=== PATIENT | female | born 1980 | race Caucasian/White ===

== ENCOUNTER 2019-04-20 14:35 | Emergency (ER) | payer BC, OTHER ==
[~2019-04-20] VITALS: Ht 167.6 cm; Wt 98.6 kg
[2019-04-20] MEDS ORDERED: MECLIZINE 12.5 MG TABLET. PO STA (14:59)
[2019-04-20] MEDS ORDERED: IV NORMAL SALINE 1,000ML 1,000 ML IV ONE (15:00)
--- NOTE | 2019-04-20 15:02 | PHYS DOC ---
Past History Past Medical History: No Pertinent History Past Surgical History: Cholecystectomy, Other Additional Past Surgical Histo: right knee Alcohol Use: None Drug Use: None Adult General Chief Complaint Chief Complaint: DIZZY/LIGHT HEADED [facility] HPI Patient is a 39 year-old female who presented to ER today for evaluation of dizziness. Patient woke up this morning feeling lightheaded as she stood up she feel really dizzy, felt like the room was spinning around her, has some ringing in her ears. Patient denies any headache, no weakness or numbness anywhere, no trouble speaking. Patient says she had been having some upper respiratory issues lately, flulike symptom with nasal congestion and facial pain. Patient denies any chest pain, no trouble breathing, no recent travel or operation. Patient had no previous history of stroke or high blood pressure or diabetic. HER SYMPTOMS GOT WORSE WITH UPRIGHT POSITION OR WHEN SHE MOVES HER HEAD AROUND All other ROS is negative unless otherwise noted in HPI Review of Systems Review of Systems See above Allergies Allergies Allergies Coded Allergies Type Severity Reaction Last Updated Verified No Known Drug Allergies 04/20/19 No Physical Exam Physical Exam See above Constitutional: Well developed, well nourished, no acute distress, non-toxic appearance. [] HENT: Normocephalic, atraumatic, bilateral external ears normal, oropharynx moist, no oral exudates, nose normal. [] Eyes: PERRLA, EOMI, conjunctiva normal, no discharge. [] Neck: Normal range of motion, no tenderness, supple, no stridor. [] Cardiovascular:Heart rate regular rhythm, no murmur [] Lungs & Thorax: Bilateral breath sounds clear to auscultation [] Abdomen: Bowel sounds normal, soft, no tenderness, no masses, no pulsatile masses. [] Skin: Warm, dry, no erythema, no rash. [] Back: No tenderness, no CVA tenderness. [] Extremities: No tenderness, no cyanosis, no clubbing, ROM intact, no edema. [] Neurologic: Alert and oriented X 3, normal motor function, normal sensory function, no focal deficits noted. [] Psychologic: Affect normal, judgement normal, mood normal. [] Current Patient Data Vital Signs Vital Signs Date Time Temp Pulse Resp B/P (MAP) Pulse Ox O2 Delivery O2 Flow Rate FiO2 04/20/19 14:45 97.7 92 18 98 Room Air EKG EKG EKG was done at 1506, rate of 68 beats per minute normal sinus rhythm, no STEMI. Radiology/Procedures Radiology/Procedures [][address] [address] IMAGING REPORT Signed PATIENT: PARMJIT PARKS ACCOUNT: [id number] : 1980 LOCATION: ER AGE: 39 SEX: F EXAM STATUS: REG ER ORD. PHYSICIAN: PAULINA CERON DO REASON: WOKE UP THIS MORNING WITH DIZZINESS, ROOM SPINNING PROCEDURE: CT HEAD WO CONTRAST PQRS Compliance Statement: One or more of the following individualized dose reduction techniques were utilized for this examination: 1. Automated exposure control 2. Adjustment of the mA and/or kV according to patient size 3. Use of iterative reconstruction technique CT head without contrast 04/20/2019 2:57 PM INDICATION: Dizziness with standing. COMPARISON: None available TECHNIQUE: Multiple axial CT images of the head were obtained from skull base through the vertex without intravenous contrast. FINDINGS: Head: Ventricles, sulci and basal cisterns are within normal limits. There is no hydrocephalus. Blevins-white matter differentiation is normal. There is no acute intracranial hemorrhage. There is no mass, mass effect or midline shift. Posterior fossa is normal in appearance. Visualized portions of the orbits are normal. Paranasal sinuses are well aerated. Mastoid air cells are well aerated. Scalp and calvaria are normal. IMPRESSION: No acute intracranial hemorrhage. Electronically signed by: Kentrell Kendrick MD (04/20/2019 3:30 PM) [id number] DICTATED AND SIGNED BY: KENTRELL KENDRICK MD DATE: 04/20/19 1530 CC: PCP,NO; PAULINA CERON DO ~ Course & Med Decision Making Course & Med Decision Making Pertinent Labs and Imaging studies reviewed. (See chart for details) DIFFERENTIAL DIAGNOSES: SINUSITIS, URI, CVA, BRAIN TUMOR, VERTIGO... She felt much better after meclizine and IV fluid. Patient probably had in her ear problem due to recent URI, we'll discharge her home with meclizine . she will need to follow with her family doctor for reevaluation. Dragon Disclaimer Dragon Disclaimer This electronic medical record was generated, in whole or in part, using a voice recognition dictation system. Departure Departure: Impression: Primary Impression: Vertigo Disposition: HOME, SELF-CARE Condition: STABLE Referrals: PCP,NO (PCP) FOLLOW UP WITH YOUR DOCTOR IN 2 DAYS FOR REEVALUATION. Patient Instructions: Vertigo Scripts Meclizine Hcl (MECLIZINE HCL) 25 Mg Tablet 1 TAB PO PRN TID PRN for DIZZINESS, #30 TAB Prov: PAULINA CERON DO 04/20/19 PAULINA CERON DO Apr 20, 2019 15:02
[2019-04-20] MEDS ORDERED: ONDANSETRON PF 4 MG/2 ML VIAL. IVP ONE (15:15)
[2019-04-20 15:23] LABS: BASO % 1 % (0-3); EOS # 0.1 x10^3/uL (0.0-0.7); EOS % 1 % (0-3); HEMATOCRIT 41.9 % (36.0-47.0); HEMOGLOBIN 14.3 g/dL (12.0-15.5); LYMPH # 1.7 x10^3/uL (1.0-4.8); LYMPH % 22 % (24-48); MEAN CORPUSCULAR HEMOGLOBIN 29 pg (25-35); MEAN CORPUSCULAR HGB CONC 34 g/dL (31-37); MEAN CORPUSCULAR VOLUME 85 fL (79-100); MONO # 0.3 x10^3/uL (0.0-1.1); MONO % 4 % (0-9); NEUT # 5.5 x10^3uL (1.8-7.7); NEUT % 72 % (31-73); PLATELET COUNT 229 x10^3/uL (140-400); RED BLOOD COUNT 4.94 x10^6/uL (3.50-5.40); RED CELL DISTRIBUTION WIDTH 13.5 % (11.5-14.5); WHITE BLOOD COUNT 7.6 x10^3/uL (4.0-11.0)
[2019-04-20 15:27] LABS: CALCIUM 8.8 mg/dL (8.5-10.1); CREATININE 0.6 mg/dL (0.6-1.0); GFR 111.9; POTASSIUM 3.7 mmol/L (3.5-5.1)
[2019-04-20 15:33] LABS: ALBUMIN 3.4 g/dL (3.4-5.0); TOTAL BILIRUBIN 1.1 mg/dL (0.2-1.0); TOTAL PROTEIN 6.7 g/dL (6.4-8.2)
--- NOTE | 2019-04-20 15:33 | RAD ---
PQRS Compliance Statement: One or more of the following individualized dose reduction techniques were utilized for this examination: 1. Automated exposure control 2. Adjustment of the mA and/or kV according to patient size 3. Use of iterative reconstruction technique CT head without contrast 04/20/2019 2:57 PM INDICATION: Dizziness with standing. COMPARISON: None available TECHNIQUE: Multiple axial CT images of the head were obtained from skull base through the vertex without intravenous contrast. FINDINGS: Head: Ventricles, sulci and basal cisterns are within normal limits. There is no hydrocephalus. Blevins-white matter differentiation is normal. There is no acute intracranial hemorrhage. There is no mass, mass effect or midline shift. Posterior fossa is normal in appearance. Visualized portions of the orbits are normal. Paranasal sinuses are well aerated. Mastoid air cells are well aerated. Scalp and calvaria are normal. IMPRESSION: No acute intracranial hemorrhage. Electronically signed by: Ivania Moss MD (04/20/2019 3:30 PM) [id number]
[2019-04-20 16:25] LABS: BACTERIA,URINE MOD /HPF (0-FEW); BILIRUBIN,URINE NEG (NEG); CLARITY,URINE CLOUDY; COLOR,URINE YELLOW; GLUCOSE,URINE NEG (NEG); NITRITE,URINE NEG (NEG); RBC,URINE 0 /HPF (0-2); SQUAMOUS EPITHELIAL CELL,UR MANY /LPF; UROBILINOGEN,URINE 0.2 mg/dL (0.2 mg/dL); WBC,URINE OCC /HPF (0-4)
[2019-04-20] MEDS ORDERED: MECL-75 PO (16:56)
[2019-04-20 17:05] VITALS: BP 142/72
--- NOTE | 2019-04-20 18:01 | EKG ---
[address] [address] Test Date: 2019-04-20 Test Time: 15:06:39 Pat Name: PARMJIT PARKS Department: Room: Gender: F Pillowcase Folder: : 1980 Requested By: PAULINA CERON Order Number: [id number] Reading MD: Measurements Intervals [place] Rate: 68 P: 30 [place]: 148 QRS: 0 QRSD: 84 T: 3 QT: 404 QTc: 430 Interpretive Statements SINUS RHYTHM LEFTWARD AXIS NO SPECIFIC ECG ABNORMALITIES RI6.01 No previous ECG available for comparison
== END 2019-04-20 17:07 | disposition home or self-care (01) ==
LOC: ER 14:35
DX: R42 Dizziness and giddiness (principal); R09.81 Nasal congestion; R51 Headache
CPT/HCPCS: 36415; 70450; 80053; 81001; 81025; 83735; 85025; 87086; 93005; 96361; 96374; 99285; J2405; J8597; J7030

== ENCOUNTER 2019-11-04 21:53 | Emergency (ER) | payer BC ==
[~2019-11-04] VITALS: Ht 167.6 cm; Wt 98.6 kg
[~2019-11-04 21:53] MED LIST: MECL-75 PO
[2019-11-04 22:04] VITALS: BP 145/98
[2019-11-04] MEDS ORDERED: HYDR-3165 PO (22:31)
--- NOTE | 2019-11-04 22:31 | PHYS DOC ---
Past History Past Medical History: No Pertinent History Past Surgical History: Cholecystectomy, Other Additional Past Surgical Histo: right knee Alcohol Use: None Drug Use: None General Adult EDM: Chief Complaint: KNEE INJURY HPI: HPI: 39-year-old female presents with right knee pain. This started yesterday, but has worsened today. She was hoping that sleeping last night would make it better. It did not. 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 She is on her feet all day. Her right knee is swollen and generally aching. She is tried Tylenol and ibuprofen but it does not take enough of the pain away. She has not sure if she has had a more significant injury and that is why she came in for evaluation. She cannot think of a specific inciting event or injury. It just began to hurt more more throughout the day yesterday. She has no other complaints at this time. Review of Systems: Review of Systems: Constitutional: Denies fever or chills Eyes: Denies change in visual acuity HENT: Denies nasal congestion or sore throat Respiratory: Denies cough or shortness of breath Cardiovascular: Denies chest pain or edema GI: Denies abdominal pain, nausea, vomiting, bloody stools or diarrhea : Denies dysuria Musculoskeletal: Right knee pain Integument: Denies rash Neurologic: Denies headache, focal weakness or sensory changes Endocrine: Denies polyuria or polydipsia Lymphatic: Denies swollen glands Psychiatric: Denies depression or anxiety Heart Score: Risk Factors: Risk Factors: DM, Current or recent (<one month) smoker, HTN, HLP, family history of CAD, obesity. Risk Scores: Score 0 - 3: 2.5% MACE over next 6 weeks - Discharge Home Score 4 - 6: 20.3% MACE over next 6 weeks - Admit for Clinical Observation Score 7 - 10: 72.7% MACE over next 6 weeks - Early Invasive Strategies Allergies: Allergies: Allergies Coded Allergies Type Severity Reaction Last Updated Verified No Known Drug Allergies 04/20/19 No Physical Exam: PE: Constitutional: Well developed, well nourished, no acute distress, non-toxic appearance. [] HENT: Normocephalic, atraumatic, bilateral external ears normal, oropharynx moist, no oral exudates, nose normal. [] Eyes: PERRLA, EOMI, conjunctiva normal, no discharge. [] Neck: Normal range of motion, no tenderness, supple, no stridor. [] Cardiovascular:Heart rate regular rhythm, no murmur [] Lungs & Thorax: Bilateral breath sounds clear to auscultation [] Abdomen: Bowel sounds normal, soft, no tenderness, no masses, no pulsatile masses. [] Skin: Warm, dry, no erythema, no rash. [] Back: No tenderness, no CVA tenderness. [] Extremities: Right knee with generalized swelling greater than left. General tenderness with palpation, but no focal findings. Solid ligamentous end feel. No obvious ecchymosis or deformity. [] Neurologic: Alert and oriented X 3, normal motor function, normal sensory function, no focal deficits noted. [] Psychologic: Affect normal, judgement normal, mood normal. [] Current Patient Data: Vital Signs: Vital Signs Date Time Temp Pulse Resp B/P (MAP) Pulse Ox O2 Delivery O2 Flow Rate FiO2 11/04/19 22:04 98.2 82 18 145/98 (114) 98 Room Air EKG: EKG: [] Radiology/Procedures: Radiology/Procedures: [] Course & Med Decision Making: Course & Med Decision Making Pertinent Labs and Imaging studies reviewed. (See chart for details) Based on the history and exam, this appears to be a knee strain though meniscal injury cannot be ruled out. I have advised the patient continue take ibuprofen, rest, and ice the knee as much as she can. She will try compression to see if it helps. I will also give her [place] 5/325 prescription. She only has 1 narcotic prescription in the last 2 years in the drug tracking database. She is stable for discharge at this time. [] Dragon Disclaimer: Dragon Disclaimer: This electronic medical record was generated, in whole or in part, using a voice recognition dictation system. Departure Departure: Impression: Primary Impression: Strain of knee Qualified Codes: S86.911A - Strain of unspecified muscle(s) and tendon(s) at lower leg level, right leg, initial encounter Disposition: 01 HOME/RESIDENCE PRIOR TO ADM Condition: STABLE Referrals: PCP,NO (PCP) Patient Instructions: Knee Pain, [facility] Scripts Hydrocodone Bit/Acetaminophen ([place] 5-325 TABLET) 1 Each Tablet 1 TAB PO PRN Q6HRS PRN for PAIN, #10 TAB 0 Refills Prov: SNELL,THOMAS DO 11/04/19 Justification of Admission: Justification of Admission: Justification of Admission Dx: N/A THOMAS SNELL DO Nov 04, 2019 22:31
== END 2019-11-04 22:33 | disposition home or self-care (01) ==
LOC: ER 21:53
DX: S86.811A Strain of other muscle(s) and tendon(s) at lower leg level, right leg, initial encounter (principal); X50.9XXA Other and unspecified overexertion or strenuous movements or postures, initial encounter; Y93.89 Activity, other specified; Y92.89 Other specified places as the place of occurrence of the external cause; Y99.0 Civilian activity done for income or pay
CPT/HCPCS: 99283